=== PATIENT | female | born 1945 | race Caucasian/White ===

== ENCOUNTER 2019-06-28 19:17 | Observation (INO) ==
[2019-06-28] MEDS ORDERED: IOPAMIDOL 100 ML BOTTLE IV ONE (19:18)
[2019-06-28] MEDS ORDERED: 0.9 % SODIUM CHLORIDE 1,000 ML IV ONE (20:00)
[2019-06-28] MEDS ORDERED: ONDANSETRON 4 MG/2 ML VIAL IV ONE (20:00)
--- NOTE | 2019-06-28 20:06 | Emergency Department Note ---
Abdominal Pain HPI - General Chief Complaint: Abdominal Pain Stated Complaint: LRQ pain Time Seen by Provider: 06/28/19 19:52 Source: patient Mode of arrival: ambulatory Limitations: no limitations - History of Present Illness HPI Narrative: 74-year-old female who developed right lower quadrant pain for the last 5 hours. Waxing and waning. She still has her gallbladder and appendix. Some nausea. Current pain 3 out of 10 - Related Data Home Medications Medication Instructions Recorded Confirmed Aspirin [[place] Aspirin EC] 81 mg PO ONCE 06/28/19 06/28/19 Atorvastatin Calcium 80 mg PO DAILY 06/28/19 06/28/19 Carvedilol [Coreg] 3.125 mg PO BID 06/28/19 06/28/19 Nitroglycerin [Nitrostat] 0.4 mg SL Q5M PRN 06/28/19 06/28/19 Ticagrelor [Brilinta] 90 mg PO BID 06/28/19 06/28/19 Allergies Allergy/AdvReac Type Severity Reaction Status Date / Time No Known Drug Allergies Allergy Verified 06/28/19 23:04 Review of Systems All systems ED: reviewed and negative except as stated. Abdominal Pain PMH - Past Medical History Attestation: Yes: The following information was validated with the patient. Medical history: Reports: CAD (coronary artery disease), hyperlipidemia, hypertension Surgical history ED: Reports: angioplasty/stent, (x2) - Social History Smoking status: Never smoker Physical Exam No acute distress resting comfortably. Normocephalic atraumatic. Conjunctive are clear sclerae white nonicteric. No nasal discharge or congestion. Oropharynx pink and moist. Heart is regular rate and rhythm no murmur appreciated. Lungs clear to auscultation bilaterally without wheezes rales rhonchi or respiratory distress. Abdomen soft nontender nondistended except right lower quadrant with tenderness at McBurney's point. Some guarding. No pedal edema. Alert and oriented Limitations: no limitations Course Vital Signs Temperature 97.5 F 06/28/19 19:19 Pulse Rate 66 06/28/19 19:19 Respiratory Rate 18 06/28/19 19:19 Blood Pressure 174/96 06/28/19 19:19 Pulse Oximetry (%) 100 06/28/19 19:19 Temperature 98.7 F 06/29/19 00:00 Pulse Rate 71 06/29/19 00:00 Respiratory Rate 16 06/29/19 00:00 Blood Pressure 161/82 06/29/19 00:00 Pulse Oximetry (%) 98 06/29/19 00:00 Abdominal Pain - Lab Data Lab results reviewed: Yes I reviewed the patient's lab results. Result diagrams: 06/28/19 19:30 06/28/19 19:30 Lab Results 06/28/19 06/28/19 06/28/19 Range/Units 19:30 19:30 19:30 WBC 11.4 H (4.50-11.00) K/mcL RBC 4.39 (3.59-5.38) M/mcL Hgb 13.2 (11.2-15.7) g/dL Hct 40.3 (34.1-44.9) % POC Hct 40.0 (36.0-48.0) % MCV 91.8 (80.0-100.0) fL MCH 30.1 (26.0-34.0) pg MCHC 32.8 (31.0-36.0) g/dL RDW 13.8 (11.5-14.5) % Plt Count 246 (140-440) K/mcL MPV 10.1 (7.4-10.4) fL Gran % 77.5 (38.0-78.0) % Lymph % (Auto) 16.5 (15.5-49.0) % [place] % (Auto) 4.8 (1.0-12.0) % Eos % (Auto) 0.8 (0.0-7.0) % Baso % (Auto) 0.4 (0.0-2.0) % Gran # 8.82 H (1.80-8.00) K/mcL Lymph # (Auto) 1.88 (1.50-4.80) K/mcL [place] # (Auto) 0.55 (0.10-0.90) K/mcL Eos # (Auto) 0.09 (0.00-0.70) K/mcL Baso # (Auto) 0.05 (0.00-0.30) K/mcL VBG Lactic Acid (0.5-2.0) mmol/L POC Sodium 138 (133-145) mmol/L Sodium 138 (133-145) mmol/L POC Potassium 4.1 (3.3-5.1) mmol/L Potassium 4.2 (3.3-5.1) mmol/L POC Chloride 106 (96-108) mmol/L Chloride 103 (96-108) mmol/L Carbon Dioxide 24 (22-30) mmol/L POC Total CO2 25 (22-30) mmol/L Anion Gap 11.0 (8-16) POC BUN 24 H (8-23) mg/dl BUN 23 (8-23) mg/dl Creatinine 0.9 (0.6-1.1) mg/dl POC Creatinine 0.8 (0.6-1.1) mg/dl GFR Calculation 63 Glucose 135 H (70-105) mg/dL POC Glucose 128 H (70-105) mg/dL Calcium 9.6 (8.6-10.4) mg/dl POC WB Ioniz Calcium 1.19 (1.16-1.32) mmol/L Total Bilirubin 0.5 (0.0-1.0) mg/dL AST 44 H (0-37) U/l ALT 42 H (0-40) U/l Alkaline Phosphatase 113 (39-117) U/L Total Protein 6.9 (5.9-8.4) gm/dL Albumin 4.2 (3.2-5.2) gm/dL Globulin 2.7 (2.2-3.7) gm/dL Albumin/Globulin Ratio 1.6 (1.0-2.3) Lipase 84 H (7-60) U/L 03//20 Range/Units 20:14 WBC (4.50-11.00) K/mcL RBC (3.59-5.38) M/mcL Hgb (11.2-15.7) g/dL Hct (34.1-44.9) % POC Hct (36.0-48.0) % MCV (80.0-100.0) fL MCH (26.0-34.0) pg MCHC (31.0-36.0) g/dL RDW (11.5-14.5) % Plt Count (140-440) K/mcL MPV (7.4-10.4) fL Gran % (38.0-78.0) % Lymph % (Auto) (15.5-49.0) % [place] % (Auto) (1.0-12.0) % Eos % (Auto) (0.0-7.0) % Baso % (Auto) (0.0-2.0) % Gran # (1.80-8.00) K/mcL Lymph # (Auto) (1.50-4.80) K/mcL [place] # (Auto) (0.10-0.90) K/mcL Eos # (Auto) (0.00-0.70) K/mcL Baso # (Auto) (0.00-0.30) K/mcL VBG Lactic Acid 1.2 (0.5-2.0) mmol/L POC Sodium (133-145) mmol/L Sodium (133-145) mmol/L POC Potassium (3.3-5.1) mmol/L Potassium (3.3-5.1) mmol/L POC Chloride (96-108) mmol/L Chloride (96-108) mmol/L Carbon Dioxide (22-30) mmol/L POC Total CO2 (22-30) mmol/L Anion Gap (8-16) POC BUN (8-23) mg/dl BUN (8-23) mg/dl Creatinine (0.6-1.1) mg/dl POC Creatinine (0.6-1.1) mg/dl GFR Calculation Glucose (70-105) mg/dL POC Glucose (70-105) mg/dL Calcium (8.6-10.4) mg/dl POC WB Ioniz Calcium (1.16-1.32) mmol/L Total Bilirubin (0.0-1.0) mg/dL AST (0-37) U/l ALT (0-40) U/l Alkaline Phosphatase (39-117) U/L Total Protein (5.9-8.4) gm/dL Albumin (3.2-5.2) gm/dL Globulin (2.2-3.7) gm/dL Albumin/Globulin Ratio (1.0-2.3) Lipase (7-60) U/L - Radiology Data Radiology results reviewed: Yes I reviewed the patient's radiology results. CT scan of the abdomen pelvis with IV contrast shows fecal material in the cecum but the location of this is actually the left upper quadrant which is suspicious for cecal volvulus. Appendix is normal with no evidence of obstruction Disposition Pt seen by OIL WELL ENGINEER/PA only: No Clinical Impression: Right lower quadrant pain Summary: Right lower quadrant pain for 5 hours concern for appendicitis versus diverticulitis versus female pelvic organ issue. Ordered laboratory IV fluids and CT scan. PRN pain medicine Pain essentially went almost to 0. I discussed findings with the patient. Her CT scan is concerning for bowel malrotation versus cecal volvulus. However her labs and vital signs are much more equivocal-she only has mild leukocytosis and her vital signs are essentially normal. I then discussed the findings with Dr. René Merino, general surgeon. He advised me to go ahead and put the patient in the hospital overnight for monitoring, treat her pain, and he would see her in the morning. He asked me to go ahead and put in a routine consult for Dr. Riley as well , as the patient has multiple medical comorbidities. Disposition: Xfer As Inpt ([facility]) Condition: Fair
[2019-06-28] MEDS: HYDROmorphone 2 MG/ML VIAL IV PRN ×2 (20:17→21:10)
[2019-06-28 20:21] LABS: POC Blood Urea Nitrogen 24 mg/dl (8-23); POC CO2 25 mmol/L (22-30); POC Calcium, Ionized 1.19 mmol/L (1.16-1.32); POC Chloride 106 mmol/L (96-108); POC Creatinine 0.8 mg/dl (0.6-1.1); POC Glucose, Random 128 mg/dL (70-105); POC Potassium 4.1 mmol/L (3.3-5.1); POC Sodium 138 mmol/L (133-145)
[2019-06-28 20:24] LABS: Basophils # (Auto) 0.05 K/mcL (0.00-0.30); Basophils % (Auto) 0.4 % (0.0-2.0); Eosinophils # (Auto) 0.09 K/mcL (0.00-0.70); Eosinophils % (Auto) 0.8 % (0.0-7.0); Granulocytes % (Auto) 77.5 % (38.0-78.0); Hematocrit 40.3 % (34.1-44.9); Hemoglobin 13.2 g/dL (11.2-15.7); Lymphocytes # (Auto) 1.88 K/mcL (1.50-4.80); Lymphocytes % (Auto) 16.5 % (15.5-49.0); Mean Cell Volume 91.8 fL (80.0-100.0); Mean Corpuscular HGB Conc 32.8 g/dL (31.0-36.0); Mean Platelet Volume 10.1 fL (7.4-10.4); Monocytes # (Auto) 0.55 K/mcL (0.10-0.90); Monocytes % (Auto) 4.8 % (1.0-12.0); Platelet Count 246 K/mcL (140-440); RBC 4.39 M/mcL (3.59-5.38); Red Cell Distribution Width 13.8 % (11.5-14.5); WBC 11.4 K/mcL (4.50-11.00)
[2019-06-28 20:47] LABS: ALT/SGPT 42 U/l (0-40); AST/SGOT 44 U/l (0-37); Albumin 4.2 gm/dL (3.2-5.2); Albumin/Globulin Ratio 1.6 (1.0-2.3); Alkaline Phosphatase 113 U/L (39-117); Bilirubin,Total 0.5 mg/dL (0.0-1.0); Blood Urea Nitrogen 23 mg/dl (8-23); Calcium 9.6 mg/dl (8.6-10.4); Carbon Dioxide 24 mmol/L (22-30); Chloride 103 mmol/L (96-108); Globulin 2.7 gm/dL (2.2-3.7); Glomerular Filtration Rate 63; Glucose 135 mg/dL (70-105)
[2019-06-28] MEDS ORDERED: NALOXONE HCL 0.4 MG/ML VIAL IV PRN (22:01)
[2019-06-28] MEDS ORDERED: ONDANSETRON 4 MG/2 ML VIAL IV PRN (22:01)
[2019-06-28] MEDS: 0.9 % SODIUM CHLORIDE 1,000 ML IV SCH (23:48)
[2019-06-29] MEDS: 0.9 % SODIUM CHLORIDE 1,000 ML IV SCH ×3 (05:50→17:08)
--- NOTE | 2019-06-29 08:11 | Cat Scan Report ---
Right lower quadrant pain TECHNIQUE: The patient was imaged following intravenous but no oral contrast from the diaphragm through the symphysis pubis. Sagittal and coronal reformats were created. Radiation exposure was limited using dose reduction technology. FINDINGS: There are a few small linear bands of scar tissue in the right middle lobe and lingula. Small hiatus hernia is present. There is no evidence of emphysema in the lung bases. The liver and spleen are normal in size and homogeneous. The gallbladder and bile ducts are normal. There is no mass or inflammation the pancreas. The adrenals and kidneys are normal. The wall of the antrum the stomach is mildly thickened. This may be collapsed mucosal folds or gastritis. No ulceration is identified. Small intestine is normal in caliber. Patient has a very elongated and redundant colon. There is a mobile cecum. The cecum is flipped superiorly into the left upper quadrant of the abdomen. It is abnormally distended, measuring up to 9.7 cm in diameter and contains a large amount of fecal material. The ascending colon is decompressed. Transverse and descending colon are normal in caliber. There are are multiple diverticula in the sigmoid colon and distal descending colon but without evidence of acute diverticulitis. Uterus and ovaries are atrophic. Urinary bladder is normally distended and appears normal. No ascites or free intra-abdominal air abscess or adenopathy are present. 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 Sigmoid diverticulosis Thickened wall of the gastric antrum Interpreted and Authenticated by: Shravan Ga 06/29/19
--- NOTE | 2019-06-29 08:30 | XRay Report ---
HISTORY: Constipation and abdominal pain FINDINGS: There is no abnormally dilated segment of colon containing stool in the mid abdomen. It measures 12 cm transverse dimension. A CT scan done following the x-ray shows this is a cecal volvulus. This is not causing bowel obstruction. Small bowel is decompressed. There is normal amount stool in the ascending transverse and descending colon. Mild scoliosis is present in the lumbar spine and there is arthritis in the thoracic and lumbar spine. Linear scar or discoid atelectasis are present in the left lower lobe. IMPRESSION: Cecal volvulus Interpreted and Authenticated by: Shravan Ga 06/29/19
--- NOTE | 2019-06-29 11:56 | General Surg History&Physical ---
History of Present Illness Patient information: Note initiated : 06/29/19 at 11:54 am Service Date, if different from initiated Date: [] Patient: Yanet Narvaez 74 y/o F admitted on 06/28/19 for LRQ pain. Chief Complaint: [] HPI: Ms. Narvaez is a 74 year old F admitted with partial colonic obstruction due to cecal volvulus. The patient had onset of increasing gaseous distention in her entire abdomen. About 1530 hrs. yesterday. The pain became progressively worse and about 6 PM she had emesis 4. Shortly thereafter. She was seen in the emergency room. Patient states that she is generally constipated but she has not had flatus or bowel movement since yesterday. Abdominal x-ray shows dilated loop of bowel in left upper quadrant. CT shows dilated cecum which is position in the left upper quadrant. Appendix is also seen in the left upper quadrant and appears to be normal. Patient states that she feels better at this time, but she still Has not had flatus or bowel movement. Review of Systems All systems PM: reviewed and no additional remarkable complaints except as stated (negative except as noted in the HPI) Past History Past medical history: Coronary artery disease status post single-vessel stent in September 2018. Hypertension. Diverticulosis Past surgical history: 2 Past family history: Mother age 89 due to dementia. Father age 66 due to coronary artery disease and acute [place]. Sister age 60 due to complications of brain aneurysm. Sister age 59 due to complications of diabetes. Brother alive age 71 with coronary artery disease Past social history: Never smoker. Uses alcohol about twice a year. Denies drug use Medications and Allergies Home Medications Medication Instructions Recorded Confirmed Type Aspirin [[place] Aspirin EC] 81 mg PO ONCE 06/28/19 06/28/19 History Atorvastatin Calcium 80 mg PO DAILY 06/28/19 06/28/19 History Carvedilol [Coreg] 3.125 mg PO BID 06/28/19 06/28/19 History Nitroglycerin [Nitrostat] 0.4 mg SL Q5M PRN 06/28/19 06/28/19 History Ticagrelor [Brilinta] 90 mg PO BID 06/28/19 06/28/19 History Allergies Allergy/AdvReac Type Severity Reaction Status Date / Time No Known Drug Allergies Allergy Verified 06/28/19 23:04 Exam Temp Pulse Resp BP Pulse Ox 98.6 F 67 16 97/53 97 06/29/19 07:49 06/29/19 04:00 06/29/19 07:49 06/29/19 04:00 06/29/19 04:00 - General physical appearance well developed, well nourished, no distress - Eyes PERRL, normal ocular movement - ENT normal pinna, normal nares, normal mucosa, no hearing loss, no congestion - Head Head exam IM: Present: atraumatic, normocephalic - Neck no masses, no bruits, trachea midline, no lymphadenopathy, no venous distension - Cardiovascular Cardiovascular exam IM: Present: normal rate and rhythm - Respiratory normal expansion, normal respiratory effort, clear to percussion, clear to auscultation - Abdomen Abdomen: Present: soft, bowel sounds, distended (minimal distention diffusely; mild tenderness right lower quadrant; hyperactive bowel sounds) Hernia: Present: none - Genitourinary Present: normal external genitalia - Integumentary Present: no rash, no growths, no abnormal pigmentation - Neurologic Present: normal coordination, normal sensation - Musculoskeletal Present: normal gait, normal posture - Psychiatric Present: oriented to time, oriented to person, oriented to place, speech is normal, memory intact Assessment and Plan (1) Cecal volvulus Patient appears to be improving so we'll try to treat her nonoperatively. Since she is not totally obstructed. She will get MiraLAX every 4 hours 4 followed by citrate of magnesia 2. Will check her labs this evening and in the morning. Abdominal series in the morning. Emergency operation. If patient's symptoms worsen. With a large volume of stool. It would be almost impossible to do colonoscopy at this time Status: Acute (2) Partial intestinal obstruction Status: Acute
[2019-06-29] MEDS ORDERED: MAGNESIUM CITRATE 300 ML ORAL.SOL PO ONE (12:01)
[2019-06-29 12:58] LABS: Basophils # (Auto) 0.04 K/mcL (0.00-0.30); Basophils % (Auto) 0.4 % (0.0-2.0); Eosinophils # (Auto) 0.08 K/mcL (0.00-0.70); Eosinophils % (Auto) 0.9 % (0.0-7.0); Hematocrit 38.4 % (34.1-44.9); Hemoglobin 12.4 g/dL (11.2-15.7); Lymphocytes # (Auto) 3.04 K/mcL (1.50-4.80); Lymphocytes % (Auto) 33.9 % (15.5-49.0); Mean Cell Volume 92.8 fL (80.0-100.0); Mean Corpuscular HGB Conc 32.3 g/dL (31.0-36.0); Monocytes % (Auto) 7.8 % (1.0-12.0); Platelet Count 224 K/mcL (140-440); RBC 4.14 M/mcL (3.59-5.38)
[2019-06-29 13:02] LABS: Prothrombin Time 13.1 sec (11.9-14.5)
[2019-06-29 13:12] LABS: C-Reactive Protein < 0.3 mg/dl (0.0-0.8)
--- NOTE | 2019-06-29 14:07 | XRay Report ---
HISTORY: Preop for cecal volvulus FINDINGS: A thin linear oriented band of scar tissue is present behind the left heart border. The lungs are otherwise clear and well expanded. The heart size, pulmonary vasculature, mediastinum, zena and pleura are normal. A mild dextroscoliotic curvature is present in the midthoracic spine. No free intra-abdominal air is present. IMPRESSION: thin linear scar medially in the left lung base. Interpreted and Authenticated by: Shravan Ga 06/29/19
[2019-06-30] MEDS: 0.9 % SODIUM CHLORIDE 1,000 ML IV SCH (02:54)
[2019-06-30 06:47] LABS: Basophils # (Auto) 0.07 K/mcL (0.00-0.30); Eosinophils # (Auto) 0.17 K/mcL (0.00-0.70); Eosinophils % (Auto) 2.5 % (0.0-7.0); Granulocytes % (Auto) 54.9 % (38.0-78.0); Hematocrit 36.4 % (34.1-44.9); Hemoglobin 11.7 g/dL (11.2-15.7); Lymphocytes # (Auto) 2.29 K/mcL (1.50-4.80); Lymphocytes % (Auto) 33.8 % (15.5-49.0); Mean Cell Volume 93.8 fL (80.0-100.0); Mean Corpuscular HGB Conc 32.1 g/dL (31.0-36.0); Mean Platelet Volume 10.1 fL (7.4-10.4); Monocytes # (Auto) 0.53 K/mcL (0.10-0.90); Monocytes % (Auto) 7.8 % (1.0-12.0); Platelet Count 209 K/mcL (140-440); RBC 3.88 M/mcL (3.59-5.38); Red Cell Distribution Width 14.3 % (11.5-14.5); WBC 6.8 K/mcL (4.50-11.00)
[2019-06-30 07:14] LABS: ALT/SGPT 31 U/l (0-40); AST/SGOT 35 U/l (0-37); Albumin 3.5 gm/dL (3.2-5.2); Albumin/Globulin Ratio 1.5 (1.0-2.3); Alkaline Phosphatase 95 U/L (39-117); Bilirubin,Total 0.6 mg/dL (0.0-1.0); Blood Urea Nitrogen 13 mg/dl (8-23); Calcium 8.3 mg/dl (8.6-10.4); Carbon Dioxide 25 mmol/L (22-30); Chloride 107 mmol/L (96-108); Globulin 2.3 gm/dL (2.2-3.7); Glomerular Filtration Rate 72; Glucose 87 mg/dL (70-105)
[2019-06-30] MEDS ORDERED: POLYETHYLENE GLYCOL 3350 17 GM PACKET PO SCH (09:00)
--- NOTE | 2019-06-30 09:15 | XRay Report ---
HISTORY: Abdominal pain follow-up ileus/cecal volvulus FINDINGS: The cecum is located in the left upper quadrant. It is no longer distended and no longer contains fecal material. Caliber of both large and small intestine are normal and there are no abnormal air-fluid levels. The stomach is decompressed. There are bands of discoid atelectasis adjacent to left diaphragm. IMPRESSION: Elongated, mobile nondistended cecum No evidence of bowel obstruction or ileus Interpreted and Authenticated by: Shravan Ga 06/30/19
--- NOTE | 2019-06-30 13:13 | Discharge Summary ---
Providers - Providers Patient information: Note initiated : 06/30/19 at 1:10 pm Service Date, if different from initiated Date: [] Patient: Yanet Narvaez 74 y/o F admitted on 06/28/19 for LRQ pain. Chief Complaint: [] Date of admission: 06/28/19 Discharge date: 06/30/19 Attending physician: Lavern Merino Hospitalization Hospital Course: 74-year-old female was admitted on 27 June with a few hours, history of crampy abdominal pain with nausea vomiting. She had abdominal distention. CT of abdomen showed a redundant, malrotated cecum in the left upper quadrant with moderate distention. There was gas in the small bowel as well as the remainder of the colon also suggesting that this was a partial obstruction. She was admitted and was treated with MiraLAX and citrate of magnesia. She had e vacuation of her colon In all of her symptoms resolved. She now has decreased amount of gas throughout all of her colon And she has minimal symptoms. She has tolerated full liquid diet 2 and is asymptomatic. Patient is stable for discharge. Discharge diagnosis: cecal volvulus Secondary discharge diagnosis: Malrotation Of cecum Reason for admission: abdominal pain with nausea and distention Procedures: None Pertinent studies/significant findings: CT of abdomen and pelvis with IV contrast Complications: None Exam Temp Pulse Resp BP Pulse Ox 98.3 F 64 14 123/72 96 06/30/19 12:00 06/30/19 12:00 06/30/19 12:00 06/30/19 12:00 06/30/19 12:00 - General physical appearance well developed, well nourished, no distress - Eyes PERRL, normal ocular movement - ENT normal pinna, normal nares, normal mucosa, no hearing loss, no congestion - Head Head exam IM: Present: atraumatic, normocephalic - Neck no masses, no bruits, trachea midline, no lymphadenopathy, no venous distension - Cardiovascular Cardiovascular exam IM: Present: normal rate and rhythm - Respiratory normal expansion, normal respiratory effort, clear to percussion, clear to auscultation - Abdomen Abdomen: Present: soft, non tender, bowel sounds, distended (no abdominal distention noted) Hernia: Present: none - Integumentary Present: no rash, no growths, no abnormal pigmentation - Neurologic Present: normal coordination, normal sensation - Musculoskeletal Present: normal gait, normal posture - Psychiatric Present: oriented to time, oriented to person, oriented to place, speech is normal, memory intact Discharge Plan - Patient/Caregiver Discharge Instructions Activity: increase activity as tolerated Diet: Regular Diet Additional Instructions: MiraLAX one capful in 8 ounces of liquid twice daily - Follow up Plan Follow up with: Dakota Gil DO [Primary Care Provider] - Disposition: Home, Self-Care Prognosis: Good Rehab Potential: Good I certify that the patient requires SNF services.: No Overall status at discharge: patient is back to baseline Pending Studies Resuscitation Status Full Code Diet Full Liquid Diet Start Sat Jun 29 0924 Sodium Chloride (Sodium Chloride 0.9%) 1,000 mls @ 100 mls/hr IV .Q10H TUAN Last Admin: 06/30/19 02:54 Dose: 100 mls/hr Documented by: Infusion: 06/30/19 02:54 Dose: 100 mls/hr Documented by: Admin: 06/29/19 17:08 Dose: 100 mls/hr Documented by: Infusion: 06/29/19 15:50 Dose: 100 mls/hr Documented by: Admin: 06/29/19 10:51 Dose: Not Given Documented by: Admin: 06/29/19 05:50 Dose: 100 mls/hr Documented by: Admin: 06/28/19 23:48 Dose: Not Given Documented by: NILSON Morphine Sulfate (Morphine) 2 mg IV Q1HP PRN; Protocol PRN Reason: PAIN LEVEL 3-6 Last Admin: 06/30/19 03:58 Dose: 2 mg Documented by: ANH Shift Summary 06/30/19 04:05 Shift Summary by Geno Guallpa HPI: Ms. Narvaez is a 74 year old F admitted with partial colonic obstruction due to cecal volvulus. The patient had onset of increasing gaseous distention in her entire abdomen. About 1530 hrs. yesterday. The pain became progressively worse and about 6 PM she had emesis 4. Shortly thereafter. She was seen in the emergency room. Patient states that she is generally constipated but she has not had flatus or bowel movement since yesterday. Abdominal x-ray shows dilated loop of bowel in left upper quadrant. CT shows dilated cecum which is position in the left upper quadrant. Appendix is also seen in the left upper quadrant and appears to be normal. Patient states that she feels better at this time, but she still Has not had flatus or bowel movement. Patient is A&Ox4, able to make needs known. Received Mag citrate yesterday on days, has had several bowel movements all loose-liquid. Denies abdominal pain, nausea, and distention. Up to bathroom at [facility] this shift. Patient has abdominal x-ray ordered for this am. Treatment based on findings. Pt only complaint this shift has been a headache that has gotten worse throughout the night. Patient relates headache to lack of caffeine. Patient was will to take a dose of morphine around 0400 for headache. No other complaints this shift. Will update with verbal report. Laboratory Tests 06/28/19 06/29/19 19:30 12:18 WBC 11.4 H 9.0 Initialized on 06/30/19 04:05 - END OF NOTE
== END 2019-06-30 14:00 | disposition home or self-care (01) ==
LOC: MEDSUR 19:17 → ED 19:17 → MEDSUR 22:34
PROVIDERS: ADMIT Family Medicine Adult Medicine; ATTEND Family Medicine Adult Medicine